=== PATIENT | female | born 1980 | race Caucasian/White ===

== ENCOUNTER 2016-09-09 13:20 | Emergency (ER) | payer OTHER ==
[~2016-09-09] VITALS: Ht 157.5 cm; Wt 94.1 kg
[~2016-09-09 13:20] MED LIST: ALBU8.5H2 INHALATION; BENZ100C8 PO; BUDE10.2 INHALATION; DIVA500T6 PO; ESCI20TA38 PO; MDR150V IM; PRE10 PO; PREG300C PO; TRAM50TA2 PO
[2016-09-09 13:25] VITALS: BP 110/71; PULSE 90; RESP 20; O2SAT 98
--- NOTE | 2016-09-09 13:39 | ED.REPORT ---
HPI-Dyspnea / Wheezing Date of Service September 09, 2016 ED Provider: Carlyle Caicedo DO The pt is a 36 y/o female w/ a hx of asthma, presenting to the ED complaining of a productive cough onset a month ago. The pt was diagnosed w/ reactive airways disease caused by a URI at the end of February and admitted to the hospital in March for this. Pneumonia was initially suspected although her blood and urine cultures were negative along with a positive viral respiratory PCR assay for rhinovirus. She is currently taking Divalproex, using Symbicort four times a day, and has not used her Albuterol in the last week because it worsened her cough. She is unsure if she is allergic to steroids. Nursing Notes Stated Complaint: SEVERE COUGH/FLUIDS IN LUNGS Chief Complaint: Respiratory Complaints Nursing Notes Reviewed: Yes Allergies: Coded Allergies: Penicillins (Verified Allergy, Unknown, hives, 04/08/16) amoxicillin (Verified Allergy, Unknown, hives, 04/08/16) cortisone (Verified Allergy, Unknown, reactive arthritis, 04/08/16) doxycycline (Verified Allergy, Unknown, 04/08/16) erythromycin base (Verified Allergy, Unknown, hives, 04/08/16) morphine (Verified Allergy, Unknown, burning skin, 04/08/16) prednisone (Verified Allergy, Unknown, reactive arthritis, 04/08/16) zolmitriptan (Verified Allergy, Unknown, throat closes, 04/08/16) Scheduled Albuterol HFA (Proair HFA) 8.5 Gm Hfa.aer.ad 2 PUFFS INHALATION Q4H Budesonide/Formoterol 80-4.5 mcg Inh (Symbicort 80-4.5 mcg Inh) 120 Puff Inhaler 2 PUFF INHALATION BID Divalproex (Divalproex) 500 Mg Tablet.dr 500 MG PO QPM Escitalopram Oxalate (Escitalopram Oxalate) 20 Mg Tablet 20 MG PO QPM Medroxyprogesterone Acetate (Depo-Provera) 150 Mg/Ml Depoinj 104 MG IM Every 3 months Prednisone (PredniSONE) 10 Mg Tablet 10 MG PO DAILY take 3 tabs for 2 days, then 2 tabs for 2 days, then 1 tab for 2 days. Prednisone (PredniSONE) 20 Mg Tablet 40 MG PO DAILY Pregabalin (Lyrica) 300 Mg Capsule 600 MG PO MORNING Pregabalin (Lyrica) 300 Mg Capsule 300 MG PO HS Tramadol (Tramadol) 50 Mg Tablet 50 MG PO BID Scheduled PRN Benzonatate (Benzonatate) 100 Mg Capsule 100 MG PO TID PRN PRN For Cough Miscellaneous Medications ([levaquin 500]) General Time Seen by MD: 13:34 Chief Complaint Cough (Productive) Hx Obtained From: Patient Arrived By: Walk-in Sudden in Onset?: Yes Onset Occurred: More than a week ago... (1 month) Symptom Duration: Since onset Recent Healthcare: Recent doctor visit, Recent hospitalization Similar Sx Previous: Yes Past Medical History Past Medical History Asthma GERD Anxiety Depression Endometriosis Past Surgical History l knee, leg fracture, ankle Reports: Appendectomy, Smoking History Former Smoker Social History Alcohol Use: "Social" Drug Use: Denies drug use Other Social History: Good social support, Occupation no work or school at this time Ambulatory Status Independent Review of Systems Productive cough Constitutional: Denies: Chills, Fever Complete sys rev & neg: except as marked. Physical Exam Initial Vital Signs Vital Signs (First) Date Time Temp Pulse Resp B/P Pulse Ox O2 Delivery O2 Flow Rate FiO2 09/09/16 13:25 37.0 90 20 110/71 98 Room Air Initial VS: Reviewed, Vital signs normal Head / Eyes: Atraumatic, Normocephalic, PERRL ENT: Mucous membranes moist, Conjunctiva normal, No scleral icterus Abdomen / GI: Soft, Non-tender, No guarding, No rebound, No distention Extremities: Vascular intact, Neuro intact, No swelling, No tenderness Skin: Warm, Dry, No cyanosis Neurologic: Alert, Oriented, Nonfocal Psychiatric: Mood/affect normal, Behavior normal, Normal thought content General/Constitutional: Awake, Alert, No acute distress Appearance / Presentation: Positive: Obese Neck: Atraumatic, Supple, Full range of motion Respiratory / Chest: Breath sounds = bilat, No respiratory distress, No chest tenderness Faint expiratory wheezes at lung bases Cardiovascular: Heart rate NL, Regular rhythm, Heart sounds NL Head / Eyes: Atraumatic, Normocephalic Interpretation & Diagnostics Lab Results Interpretation Result Diagram: 09/09/16 1430 09/09/16 1430 Test 09/09/16 14:30 White Blood Count 8.5th/mm3 (3.8-10.1) Red Blood Count 4.19mil/mm3 (3.90-5.20) Hemoglobin 13.3g/dL (12.0-15.6) Hematocrit 40.4% (35.0-46.0) Mean Corpuscular Volume 96.4fL (81-100) Mean Corpuscular Hemoglobin 31.7pg (27.0-35.0) Mean Corpuscular Hemoglobin Concent 32.9% (32.0-37.0) Red Cell Distribution Width 14.2% (12.3-15.4) Platelet Count 235bil/L (150-400) Neutrophils (%) (Auto) 60.5% (40-74) Lymphocytes (%) (Auto) 29.0% (14-46) Monocytes (%) (Auto) 8.2% (4-12) Eosinophils (%) (Auto) 1.8% (0-5) Basophils (%) (Auto) 0.4% (0-3) Sodium Level 141mEq/L (134-144) Potassium Level 4.2mEq/L (3.5-5.2) Chloride Level 105mEq/L (97-108) Carbon Dioxide Level 21mmol/L (18-29) Blood Urea Nitrogen 12mg/dL (6-20) Creatinine 0.83mg/dL (0.57-1.00) Estimat Glomerular Filtration Rate 111mL/min (>59) Glucose Level 99mg/dL (60-99) Calcium Level 9.3mg/dL (8.5-10.1) Total Bilirubin 0.3mg/dL (0.0-1.2) Aspartate Amino Transf (AST/SGOT) 18U/L (0-50) Alanine Aminotransferase (ALT/SGPT) 11U/L (0-32) Alkaline Phosphatase 68U/L (25-150) Troponin T < 0.010ug/L (0.0-0.011) Pro-B-Type Natriuretic Peptide 110.2pg/mL (0-130) Total Protein 6.9g/dL (6.4-8.4) Albumin 3.7g/dL (3.4-5.0) Procalcitonin 0.05ng/mL (0.00-0.08) Hold [place] Top Tube Received (Received) ECG Interpretation ECG Interpretation: Rate 83 Normal sinus rhythm Low voltage, precordial leads Time: 13:58 Interpreted by: ED physician X-Ray Chest Interpretation Chest Xray Interpretation: IMPRESSION: 1. No acute cardiopulmonary disease. Dictated by: Eddi Gtz M.D. on 09/09/2016 at 14:26 Approved by: Eddi Gtz M.D. on 09/09/2016 at 14:26 View: AP & lat Interpretation / Wet Read by: Interpret - Radiologist Re-Eval/Medical Decision Source of Hx: Old records Re-Evaluation/Progress : Time of Eval: 15:04 Re-Evaluation/Progress Note: Rechecked pt who is feeling better. The pt declines an IV. Discussed diagnosis, radiology results, and treatment plan. Pt understands and agrees with plan for treatment. Counseled Regarding: Diagnosis, Lab results, Need for follow-up, When/why to return to ED Discharge & Departure Impression: Primary Impression: Bronchitis Disposition: Home Discharge Condition All VS Reviewed: Yes Condition: Stable Additional Instructions: Take levofloxacin and prednisone as prescribed. Use albuterol every 4 hours as well as Symbicort. Follow up with your primary care doctor in the next few days and return to the ER as needed for worsening symptoms. Referrals: Cheli Medina (PCP) Scribe Attestation Portions of this note were transcribed by David Snell. I, Dr. Esmer Jerome personally performed the history, physical exam and medical decision- making; I reviewed and confirmed the accuracy of the information in the transcribed note. Signed by: Daisha Pierce, 09/09/16 and [id number]. copies to: Cheli Medina Timmert Gilman September 09, 2016 13:39 David Joel September 09, 2016 13:47 IRENE SNELL September 09, 2016 14:18
[2016-09-09] MEDS ORDERED: 0.9% Sodium Chloride 1,000 ML IV ONE (13:44)
[2016-09-09] MEDS ORDERED: MethylprednisoLONE Sodium Succinate 62.5 mg/mL 2 mL Inj IVPUSH ONE (13:45)
[2016-09-09] MEDS ORDERED: Albuterol 2.5 mg/3 mL Inhalation Solution NEB ONE (13:45)
[2016-09-09] MEDS ORDERED: Albuterol-Ipratropium 3 mL Inhalation Solution NEB ONE (13:45)
[2016-09-09 14:19] VITALS: PULSE 81; RESP 20; O2SAT 98
--- NOTE | 2016-09-09 14:33 | DRSVH ---
PROCEDURE: X-RAY CHEST, TWO VIEWS ([id number]) INDICATIONS: cough TECHNIQUE: 2 views of the chest were acquired. COMPARISON: [facility], CR, XR CHEST 2VW, 04/07/2016, 15:03. FINDINGS: Surgical changes and devices: None. Lungs and pleura: No pleural effusions or pneumothorax. Lungs are clear. Mediastinum: Mediastinal contours are normal. Heart size is normal. Bones and chest wall: No suspicious bony abnormalities. Soft tissues appear unremarkable. IMPRESSION: 1. No acute cardiopulmonary disease. Dictated by: Eddi Gtz M.D. on 09/09/2016 at 14:26 Approved by: Eddi Gtz M.D. on 09/09/2016 at 14:26
[2016-09-09 15:07] LABS: BASOPHILS % (AUTO) 0.4 % (0-3); EOSINOPHILS % (AUTO) 1.8 % (0-5); MONOCYTES % (AUTO) 8.2 % (4-12); Mean Corpuscular Hemoglobin 31.7 pg (27.0-35.0); Mean Corpuscular Volume 96.4 fL (81-100); NEUTROPHILS % (AUTO) 60.5 % (40-74); Platelet Count 235 bil/L (150-400)
[2016-09-09] MEDS ORDERED: predniSONE 20 mg Tablet PO ONE (15:15)
[2016-09-09] MEDS ORDERED: levoFLOXacin 500 mg Tablet PO ONE (15:15)
[2016-09-09] MEDS ORDERED: LEVAQUIN (15:18)
[2016-09-09] MEDS ORDERED: PRE20 PO (15:18)
[2016-09-09 15:32] LABS: TROPONIN T < 0.010 ug/L (0.0-0.011)
[2016-09-09 16:13] VITALS: BP 110/71; PULSE 106; RESP 20; O2SAT 97
== END 2016-09-09 16:14 | disposition home or self-care (01) ==
LOC: SED 13:20
DX: J40 Bronchitis, not specified as acute or chronic (principal); J45.909 Unspecified asthma, uncomplicated; K21.9 Gastro-esophageal reflux disease without esophagitis; F32.9 Major depressive disorder, single episode, unspecified; F41.9 Anxiety disorder, unspecified; Z87.09 Personal history of other diseases of the respiratory system; Z87.891 Personal history of nicotine dependence; Z88.0 Allergy status to penicillin; Z88.8 Allergy status to other drugs, medicaments and biological substances; Z88.1 Allergy status to other antibiotic agents; Z88.5 Allergy status to narcotic agent
CPT/HCPCS: 36415; 71020; 80053; 83880; 84145; 84484; 85025; 93005; 94640; 94664; 99285; J7613; J7620

== ENCOUNTER 2016-10-05 10:58 | Emergency (ER) | payer OTHER ==
[~2016-10-05] VITALS: Ht 157.5 cm; Wt 90.9 kg
[~2016-10-05 10:58] MED LIST changes: +LEVAQUIN; +PRE20 PO
[2016-10-05 11:01] VITALS: BP 112/62; PULSE 99; RESP 24; O2SAT 99
[2016-10-05] MEDS ORDERED: Albuterol-Ipratropium 3 mL Inhalation Solution NEB ONE (11:25)
--- NOTE | 2016-10-05 11:27 | ED.REPORT ---
HPI-Dyspnea / Wheezing Date of Service Oct 05, 2016 ED Provider: Huang Hunt PA-C Ubaldo is a 36-year-old female with a history reactive airway disease presenting with 2 weeks of, head pressure, productive cough, shortness of breath, sore throat, sneezing. Also admits right ear pain for last 4-5 days which "feels like an ice pick being stabbed later." Denies fever, chills, abdominal pain, vomiting, diarrhea, urinary symptoms. Recently discontinued smoking. Seen in this department approximately 3 weeks ago for similar symptoms. Treated with prednisone, Levaquin. Patient reports that she improved for about a week and her symptoms have slowly been worsening since then. Denies hemoptysis, recent trauma/surgery, extended travel, cancer, unilateral leg swelling, acute PE or DVT. Admits control Depo-Provera. Nursing Notes Stated Complaint: SOB/ASTHMA/EAR PAIN Chief Complaint: Respiratory Complaints Nursing Notes Reviewed: Yes Allergies: Coded Allergies: Penicillins (Verified Allergy, Unknown, hives, 10/05/16) amoxicillin (Verified Allergy, Unknown, hives, 10/05/16) cortisone (Verified Allergy, Unknown, reactive arthritis, 10/05/16) doxycycline (Verified Allergy, Unknown, 10/05/16) erythromycin base (Verified Allergy, Unknown, hives, 10/05/16) morphine (Verified Allergy, Unknown, burning skin, 10/05/16) zolmitriptan (Verified Allergy, Unknown, throat closes, 10/05/16) Scheduled Albuterol HFA (Proair HFA) 8.5 Gm Hfa.aer.ad 2 PUFFS INHALATION Q4H Budesonide/Formoterol 80-4.5 mcg Inh (Symbicort 80-4.5 mcg Inh) 120 Puff Inhaler 2 PUFF INHALATION BID Divalproex (Divalproex) 500 Mg Tablet.dr 500 MG PO QPM Escitalopram Oxalate (Escitalopram Oxalate) 20 Mg Tablet 20 MG PO QPM Medroxyprogesterone Acetate (Depo-Provera) 150 Mg/Ml Depoinj 104 MG IM Every 3 months Prednisone (PredniSONE) 10 Mg Tablet 10 MG PO DAILY take 3 tabs for 2 days, then 2 tabs for 2 days, then 1 tab for 2 days. Prednisone (PredniSONE) 20 Mg Tablet 40 MG PO DAILY Prednisone (PredniSONE) 20 Mg Tablet 40 MG PO DAILY Pregabalin (Lyrica) 300 Mg Capsule 600 MG PO MORNING Pregabalin (Lyrica) 300 Mg Capsule 300 MG PO HS Tramadol (Tramadol) 50 Mg Tablet 50 MG PO BID Scheduled PRN Albuterol Neb Soln (Albuterol Neb Soln) 2.5 Mg/3 Ml Vial.neb 2.5 MG INHALATION Q4H PRN PRN For Wheezing Benzonatate (Benzonatate) 100 Mg Capsule 100 MG PO TID PRN PRN For Cough Miscellaneous Medications ([levaquin 500]) General Time Seen by MD: 11:10 Chief Complaint Shortness of breath Past Medical History Past Medical History Asthma GERD Anxiety Depression Endometriosis Past Surgical History l knee, leg fracture, ankle Reports: Appendectomy, Smoking History Former Smoker Social History Alcohol Use: "Social" Drug Use: Denies drug use Other Social History: Good social support, Occupation no work or school at this time Ambulatory Status Independent Review of Systems General: Denies fever, chills, malaise. HEENT: Admits congestion, headache, sore throat, sneezing, right ear pain. Respiratory: Admits dyspnea, cough, shortness of breath, wheezing. Cardiovascular: Denies chest pain, palpitations. Gastrointestinal: Denies vomiting, diarrhea, abdominal pain. Genitourinary: Denies frequency, urgency, dysuria, hematuria. Otherwise as noted in HPI. Physical Exam General: Well appearing, well developed, well nourished, no acute distress. Head: Atraumatic, normocephalic. No mastoid tenderness. Eyes: No scleral icterus or injection. No discharge. PERRL. Vision grossly intact. Right ear: Pinna and tragus nontender with manipulation. External auditory canal patent, atraumatic and without discharge. Tympanic membrane dark with fluid, negative bulging, retraction or perforation. Hearing grossly intact. Left ear: Pinna and tragus nontender with manipulation. External auditory canal patent, atraumatic and without discharge. Tympanic membrane is opaque with apparent purulence, slightly injected. Hearing grossly intact. Nose: Symmetrical, nares patent without discharge. No frontal or maxillary sinus tenderness. Mouth/pharynx: normal dentition, mucus membranes moist. Tonsils 2+ and symmetrical, uvula midline. Pharynx noninjected, no cobblestoning or discharge. Voice clear. Neck: No tenderness or lymphadenopathy. Trachea midline. Respiratory: Appears short of breath walking into the examination room. Tachypneic rate and regular rhythm. Breath sounds present, clear to auscultation and equal bilaterally. Speaks in complete sentences. Cardiovascular: Regular rate and rhythm, without murmur, gallop or rub. No pedal edema. Skin: Warm and dry. Neurological: Grossly nonfocal. Psychological: Alert and oriented. Speech appropriate, linear and logical. Behavior appropriate. Initial Vital Signs Vital Signs (First) Date Time Temp Pulse Resp B/P Pulse Ox O2 Delivery O2 Flow Rate FiO2 10/05/16 11:01 36.4 99 24 112/62 99 Room Air Initial VS: Vital signs abnormal (tachypneic) Interpretation & Diagnostics Lab Results Interpretation Result Diagram: 10/05/16 1200 10/05/16 1200 Test 10/05/16 12:00 White Blood Count 8.1th/mm3 (3.8-10.1) Red Blood Count 4.17mil/mm3 (3.90-5.20) Hemoglobin 13.3g/dL (12.0-15.6) Hematocrit 40.4% (35.0-46.0) Mean Corpuscular Volume 96.9fL (81-100) Mean Corpuscular Hemoglobin 31.9pg (27.0-35.0) Mean Corpuscular Hemoglobin Concent 32.9% (32.0-37.0) Red Cell Distribution Width 14.4% (12.3-15.4) Platelet Count 213bil/L (150-400) Neutrophils (%) (Auto) 64.7% (40-74) Lymphocytes (%) (Auto) 27.0% (14-46) Monocytes (%) (Auto) 7.6% (4-12) Eosinophils (%) (Auto) 0.4% (0-5) Basophils (%) (Auto) 0.2% (0-3) Sodium Level 142mEq/L (134-144) Potassium Level 3.5mEq/L (3.5-5.2) Chloride Level 106mEq/L (97-108) Carbon Dioxide Level 22mmol/L (18-29) Blood Urea Nitrogen 9mg/dL (6-20) Creatinine 0.81mg/dL (0.57-1.00) Estimat Glomerular Filtration Rate 114mL/min (>59) Glucose Level 133mg/dL (60-99) Calcium Level 9.2mg/dL (8.5-10.1) Total Bilirubin 0.3mg/dL (0.0-1.2) Aspartate Amino Transf (AST/SGOT) 19U/L (0-50) Alanine Aminotransferase (ALT/SGPT) 12U/L (0-32) Alkaline Phosphatase 64U/L (25-150) Total Protein 6.2g/dL (6.4-8.4) Albumin 3.8g/dL (3.4-5.0) X-Ray Chest Interpretation Chest Xray Interpretation: PROCEDURE: X-RAY CHEST, TWO VIEWS ([id number]) INDICATIONS: 2 weeks cough IMPRESSION: Source of persistent cough is not found. Interpretation / Wet Read by: Interpret - Radiologist Re-Eval/Medical Decision Med Decision/Clinical Course 36-year-old female history reactive airway disease presents with persistent cough and wheezing for the last 2 weeks, as well as head pressure, ear pain, sneezing. Seen in this department approximately a month ago for similar. There is improvement after that but has been worsening again. Physical examination reveals a tachypneic patient whose lungs are clear to auscultation bilaterally. Fluid noted behind right tympanic brain. SPO2 99% on room air at rest. Vitals otherwise normal. Chest x-ray is unremarkable. CBC, CMP are unremarkable. Responds well to treatment with DuoNeb, continuous albuterol, prednisone. However her SPO2 reduces to 90% after ambulation without emergency department. Discussed case with Dr. Pimentel, who met with and examine the patient. He does not believe the ear requires antibiotic treatment. At this point I am reassured this is unlikely to be pneumonia, pulmonary embolus, pneumothorax, pleural effusion. This is most likely an exacerbation of her asthma likely secondary to allergies. Discussed the possibility of admission for observation with the patient, who prefers to be discharged to home. Provided prescription for home nebulizer, albuterol solution, prednisone, MDI spacer. Advised regarding primary care follow-up, provided emergency return precautions. Patient verbalized understanding of, and consent to, the plan. Re-Evaluation/Progress : Time of Eval: 12:10 Re-Evaluation/Progress Note: Patient reports some improvement after treatment with DuoNeb, however she remains tachypneic. Ordered albuterol, prednisone. Patient lists cortisone as an allergy, but reports taking prednisone previously without complication. Consents to treatment with prednisone. Discharge & Departure Impression: Primary Impression: Acute asthma exacerbation Asthma severity: unspecified severity Qualified Code: J45.901 - Unspecified asthma with (acute) exacerbation Disposition: Home Discharge Condition All VS Reviewed: Yes Condition: Stable Patient Instructions: Asthma (ED) Additional Instructions: Evaluation for shortness of breath and cough in the emergency department included history, physical examination, blood work and x-ray, all of which are reassuring that this is unlikely to be caused by an immediately dangerous conditions such as pneumonia. You did not wish to be admitted for observation and I believe it is reasonable that you be discharged to home. Improved after treatment with albuterol here in the department. I will write a prescription for nebulizer and albuterol to be used at home. I will also write prescription for prednisone to be taken once a day for the next 3 days, starting tomorrow. You received the first dose here in the emergency department. I will provide you with a spacer for your metered-dose inhalers request. You assured me that you have previously been trained in their use. I believe this may be exacerbated by seasonal allergies. I recommend loratidine 10 mg daily, which is available [id number]. Follow-up with your primary care provider as soon as possible to further assess the treatment of your reactive airway disease. Return to emergency department for any new or worsening symptoms including increasing shortness of breath, pain in your chest, loss of consciousness. Referrals: FELICITA COBBHI HAILY (PCP) EDSupervising Provider for APC: Carlyle Caicedo DO copies to: [facility] Huang Hunt PA-C Oct 05, 2016 11:26
[2016-10-05 11:43] VITALS: PULSE 106; RESP 16; O2SAT 98
--- NOTE | 2016-10-05 11:58 | DRSVH ---
PROCEDURE: X-RAY CHEST, TWO VIEWS ([id number]) INDICATIONS: 2 weeks cough TECHNIQUE: 2 views of the chest were acquired. COMPARISON: [facility], CR, XR CHEST 2VW, 09/09/2016, 14:12. [facility], CR, XR CHEST 2VW, 04/07/2016, 15:03. FINDINGS: Surgical changes and devices: None. Lungs and pleura: No pleural effusions or pneumothorax. Lungs are clear. Mediastinum: Mediastinal contours are normal. Heart size is normal. Bones and chest wall: No suspicious bony abnormalities. Soft tissues appear unremarkable. IMPRESSION: Source of persistent cough is not found. Dictated by: Nicholas Weeks M.D. on 10/05/2016 at 11:56 Approved by: Nicholas Weeks M.D. on 10/05/2016 at 11:56
[2016-10-05] MEDS ORDERED: predniSONE 20 mg Tablet PO ONE (12:10)
[2016-10-05] MEDS ORDERED: Albuterol 2.5 mg/3 mL Inhalation Solution NEB ONE (12:10)
[2016-10-05 12:13] LABS: BASOPHILS % (AUTO) 0.2 % (0-3); EOSINOPHILS % (AUTO) 0.4 % (0-5); MONOCYTES % (AUTO) 7.6 % (4-12); Mean Corpuscular Hemoglobin 31.9 pg (27.0-35.0); Mean Corpuscular Volume 96.9 fL (81-100); NEUTROPHILS % (AUTO) 64.7 % (40-74); Platelet Count 213 bil/L (150-400)
[2016-10-05 12:18] VITALS: PULSE 98; RESP 20; O2SAT 98
[2016-10-05 12:31] VITALS: PULSE 96; RESP 18; O2SAT 99
[2016-10-05] MEDS ORDERED: PRE20 PO (13:57)
[2016-10-05] MEDS ORDERED: ALBU2.5V4 INHALATION (13:58)
[2016-10-05 14:20] VITALS: PULSE 108; RESP 18; O2SAT 98
== END 2016-10-05 14:15 | disposition home or self-care (01) ==
LOC: SED 10:58
DX: J45.901 Unspecified asthma with (acute) exacerbation (principal); H92.01 Otalgia, right ear; K21.9 Gastro-esophageal reflux disease without esophagitis; F41.9 Anxiety disorder, unspecified; F32.9 Major depressive disorder, single episode, unspecified; Z87.891 Personal history of nicotine dependence; Z88.0 Allergy status to penicillin; Z88.1 Allergy status to other antibiotic agents; Z88.5 Allergy status to narcotic agent; Z88.8 Allergy status to other drugs, medicaments and biological substances
CPT/HCPCS: 36415; 71020; 80053; 85025; 94640; 94664; 99284; J7613; J7620

== ENCOUNTER 2017-01-21 09:45 | Emergency (ER) | payer OTHER ==
[~2017-01-21] VITALS: Ht 157.5 cm; Wt 86.4 kg
[~2017-01-21 09:45] MED LIST changes: +ALBU2.5V4 INHALATION
[2017-01-21 09:48] VITALS: BP 102/69; PULSE 102; RESP 18; O2SAT 99
--- NOTE | 2017-01-21 09:59 | ED.REPORT ---
HPI-Dyspnea / Wheezing Date of Service Jan 21, 2017 ED Provider: Diamante Koo MD Patient is a 36 year old female with a history of asthma who presents to the ED complaining of an asthma exacerbation onset 3 days ago. Associated symptoms include cough, wheezing and shortness of breath. The patient reports that she has tried using her Albuterol, Symbicort and nebulizer at home without relief of symptoms. She states that she was recently started on Propranolol but stopped taking it a week ago. Nursing Notes Stated Complaint: TROUBLE BREATHING Chief Complaint: Respiratory Complaints Nursing Notes Reviewed: Yes Allergies: Coded Allergies: Penicillins (Verified Allergy, Unknown, hives, 10/05/16) amoxicillin (Verified Allergy, Unknown, hives, 10/05/16) cortisone (Verified Allergy, Unknown, reactive arthritis, 10/05/16) doxycycline (Verified Allergy, Unknown, 10/05/16) erythromycin base (Verified Allergy, Unknown, hives, 10/05/16) morphine (Verified Allergy, Unknown, burning skin, 10/05/16) zolmitriptan (Verified Allergy, Unknown, throat closes, 10/05/16) Scheduled Albuterol HFA (Proair HFA) 8.5 Gm Hfa.aer.ad 2 PUFFS INHALATION Q4H Budesonide/Formoterol 80-4.5 mcg Inh (Symbicort 80-4.5 mcg Inh) 120 Puff Inhaler 2 PUFF INHALATION BID Divalproex (Divalproex) 500 Mg Tablet.dr 500 MG PO QPM Escitalopram Oxalate (Escitalopram Oxalate) 20 Mg Tablet 20 MG PO QPM Medroxyprogesterone Acetate (Depo-Provera) 150 Mg/Ml Depoinj 104 MG IM Every 3 months Prednisone (PredniSONE) 10 Mg Tablet 10 MG PO DAILY take 3 tabs for 2 days, then 2 tabs for 2 days, then 1 tab for 2 days. Prednisone (PredniSONE) 20 Mg Tablet 40 MG PO DAILY Prednisone (PredniSONE) 20 Mg Tablet 40 MG PO DAILY Prednisone (PredniSONE) 10 Mg Tablet 10 MG PO DAILY 40mg on 01/22, 30mg 01/23, 20mg on 01/24 and 01/25, 10mg on 01/26 and 01/27 then stop Pregabalin (Lyrica) 300 Mg Capsule 600 MG PO MORNING Pregabalin (Lyrica) 300 Mg Capsule 300 MG PO HS Tramadol (Tramadol) 50 Mg Tablet 50 MG PO BID Scheduled PRN Albuterol Neb Soln (Albuterol Neb Soln) 2.5 Mg/3 Ml Vial.neb 2.5 MG INHALATION Q4H PRN PRN For Wheezing Albuterol Neb Soln (Albuterol Neb Soln) 2.5 Mg/3 Ml Vial.neb 2.5 MG INHALATION Q4H PRN PRN For Wheezing Benzonatate (Benzonatate) 100 Mg Capsule 100 MG PO TID PRN PRN For Cough Miscellaneous Medications ([levaquin 500]) General Time Seen by MD: 09:57 Chief Complaint Shortness of breath Hx Obtained From: Patient Arrived By: Walk-in Sudden in Onset?: No Onset Occurred: 3 days ago Symptom Duration: Since onset Severity: Current: No pain currently Similar Sx Previous: Yes Past Medical History Past Medical History Anxiety Depression Endometriosis Reports: Asthma, GERD Past Surgical History left knee, leg fracture, ankle Reports: Appendectomy, Smoking History Former Smoker Social History Alcohol Use: "Social" Drug Use: Denies drug use Other Social History: Good social support, Occupation no work or school at this time Ambulatory Status Independent Review of Systems Respiratory: Reports: Non-productive cough, Shortness of breath, Wheezing Complete sys rev & neg: except as marked. Physical Exam Initial Vital Signs Vital Signs (First) Date Time Temp Pulse Resp B/P Pulse Ox O2 Delivery O2 Flow Rate FiO2 01/21/17 09:48 36.4 102 18 102/69 99 Room Air Initial VS: Reviewed General/Constitutional: Awake, Alert Neck: Atraumatic, Supple Respiratory / Chest: Atraumatic, No respiratory distress coarse can speech in partial sentences diffuse wheezes in all garay Cardiovascular: Heart rate NL, Regular rhythm, Heart sounds NL, No murmurs Skin: Atraumatic, Color NL, No rash, Warm, Dry Neurologic: Oriented X3, Speech NL Head / Eyes: Atraumatic, Normocephalic Re-Eval/Medical Decision Re-Evaluation/Progress #1: Time of Eval: 11:02 Re-Evaluation/Progress Note: Patient is feeling improved after a neb treatment. Re-Evaluation/Progress #2: Time of Eval: 11:15 Re-Evaluation/Progress Note: Discussed plan for steroid treatment and discharge. patient understands and agrees to plan. All questions were addressed. Counseled Regarding: Diagnosis, Lab results, Need for follow-up, When/why to return to ED Discharge & Departure Impression: Primary Impression: Acute asthma exacerbation Asthma severity: unspecified severity Qualified Code: J45.901 - Unspecified asthma with (acute) exacerbation Additional Impression: Adverse reaction to beta-jeremi Encounter type: initial encounter Qualified Code: T44.7X5A - Adverse effect of beta-adrenoreceptor antagonists, initial encounter Disposition: Home Discharge Condition All VS Reviewed: Yes Condition: Stable Additional Instructions: Your symptoms are likely related to the beta- jeremi (Propranolol) and you have appropriately stopped this medicine. Take the steroid, Prednisone as prescribed. You had a dose of solumedrol as a shot in the ER. The prednisone should be 40mg on 01/22, 30mg 01/23, 20mg on 01/24 and 01/25, 10mg on 01/26 and 01/27 then stop Continue to use your nebulizer and medications as needed for symptoms. Follow up with your primary care physician later this week. Return to the emergency department if you develop any new or concerning symptoms. [facility] Scribe Attestation Portions of this note were transcribed by Isha Mcnair. I, Dr. Koo personally performed the history, physical exam and medical decision-making; I reviewed and confirmed the accuracy of the information in the transcribed note. Signed by: Patrice Pulido, 01/21/17. copies to: [facility] Diamante Koo MD Jan 21, 2017 09:59 Kelsi Mcnair Jan 21, 2017 10:16
[2017-01-21] MEDS ORDERED: Albuterol 2.5 mg/3 mL Inhalation Solution NEB ONE (10:00)
[2017-01-21 10:15] VITALS: PULSE 102; RESP 20; O2SAT 94
[2017-01-21] MEDS ORDERED: ALBU2.5V4 INHALATION (11:12)
[2017-01-21] MEDS ORDERED: PRE10 PO (11:12)
[2017-01-21] MEDS ORDERED: MethylprednisoLONE Sodium Succinate 62.5 mg/mL 2 mL Inj IM ONE (11:15)
[2017-01-21 12:18] VITALS: BP 106/78; PULSE 97; O2SAT 96
== END 2017-01-21 12:17 | disposition home or self-care (01) ==
LOC: SED 09:45
DX: J45.901 Unspecified asthma with (acute) exacerbation (principal); T44.7X5A Adverse effect of beta-adrenoreceptor antagonists, initial encounter; Y93.89 Activity, other specified; Y92.89 Other specified places as the place of occurrence of the external cause; Y99.8 Other external cause status; K21.9 Gastro-esophageal reflux disease without esophagitis; F41.8 Other specified anxiety disorders; Z90.89 Acquired absence of other organs; Z98.890 Other specified postprocedural states; Z87.891 Personal history of nicotine dependence; Z88.0 Allergy status to penicillin; Z88.1 Allergy status to other antibiotic agents; Z88.5 Allergy status to narcotic agent; Z88.8 Allergy status to other drugs, medicaments and biological substances
CPT/HCPCS: 94664; 96372; 99284; J2930; J7613

== ENCOUNTER 2017-01-25 08:54 | Emergency (ER) | payer OTHER ==
[~2017-01-25] VITALS: Ht 157.5 cm; Wt 89.5 kg
[2017-01-25 08:57] VITALS: BP 121/77; PULSE 95; RESP 28; O2SAT 98
--- NOTE | 2017-01-25 09:18 | ED.REPORT ---
HPI-Dyspnea / Wheezing Date of Service Jan 25, 2017 ED Provider: Alberto Quinones MD Patient is a 36 year old female with a hx of asthma who presents to the ED complaining of worsening SOB onset 8 days ago. She has been on abx for 5 days for pneumonia and feels like she is getting worse. Associated symptoms include subjective fever, productive cough with green sputum, and low back pain. She denies hemoptysis, abdominal pain, ankle swelling, or any other symptoms. Pt has also been using nebulizers (4 times a day) and a prednisone taper without relief. Her PCP also put her on Levaquin. She denies using Tylenol or Ibuprofen. Nursing Notes Stated Complaint: SOB/POSS PNEUMONIA Chief Complaint: Respiratory Distress Nursing Notes Reviewed: Yes Allergies: Coded Allergies: Penicillins (Verified Allergy, Unknown, hives, 01/25/17) amoxicillin (Verified Allergy, Unknown, hives, 01/25/17) cortisone (Verified Allergy, Unknown, reactive arthritis, 01/25/17) doxycycline (Verified Allergy, Unknown, 01/25/17) erythromycin base (Verified Allergy, Unknown, hives, 01/25/17) morphine (Verified Allergy, Unknown, burning skin, 01/25/17) zolmitriptan (Verified Allergy, Unknown, throat closes, 01/25/17) Scheduled Albuterol HFA (Proair HFA) 8.5 Gm Hfa.aer.ad 2 PUFFS INHALATION Q4H Budesonide/Formoterol 80-4.5 mcg Inh (Symbicort 80-4.5 mcg Inh) 120 Puff Inhaler 2 PUFF INHALATION BID Divalproex (Divalproex) 500 Mg Tablet.dr 500 MG PO QPM Escitalopram Oxalate (Escitalopram Oxalate) 20 Mg Tablet 20 MG PO QPM Medroxyprogesterone Acetate (Depo-Provera) 150 Mg/Ml Depoinj 104 MG IM Every 3 months Prednisone (PredniSONE) 10 Mg Tablet 10 MG PO DAILY take 3 tabs for 2 days, then 2 tabs for 2 days, then 1 tab for 2 days. Prednisone (PredniSONE) 20 Mg Tablet 40 MG PO DAILY Prednisone (PredniSONE) 20 Mg Tablet 40 MG PO DAILY Prednisone (PredniSONE) 10 Mg Tablet 10 MG PO DAILY 40mg on 01/22, 30mg 01/23, 20mg on 01/24 and 01/25, 10mg on 01/26 and 01/27 then stop Pregabalin (Lyrica) 300 Mg Capsule 600 MG PO MORNING Pregabalin (Lyrica) 300 Mg Capsule 300 MG PO HS Tramadol (Tramadol) 50 Mg Tablet 50 MG PO BID Scheduled PRN Albuterol Neb Soln (Albuterol Neb Soln) 2.5 Mg/3 Ml Vial.neb 2.5 MG INHALATION Q4H PRN PRN For Wheezing Albuterol Neb Soln (Albuterol Neb Soln) 2.5 Mg/3 Ml Vial.neb 2.5 MG INHALATION Q4H PRN PRN For Wheezing Benzonatate (Benzonatate) 100 Mg Capsule 100 MG PO TID PRN PRN For Cough Benzonatate (Tessalon Perle) 100 Mg Capsule 100 MG PO TID PRN PRN For Cough Miscellaneous Medications ([levaquin 500]) General Time Seen by MD: 09:17 Chief Complaint Shortness of breath Hx Obtained From: Patient Arrived By: Walk-in Sudden in Onset?: No Onset Occurred: 1 week ago Symptom Duration: Since onset Recent Healthcare: Recent doctor visit Similar Sx Previous: Yes Past Medical History Past Medical History Notes: 3rd bout of pneumonia this year Past Medical History Anxiety cardiomyopathy Depression Endometriosis Fibromyalgia PTSD Reports: Asthma, GERD Past Surgical History left knee, leg fracture, ankle R knee x2 stomach surgery for GERD surg for Endometriosis Reports: Appendectomy, Smoking History Former Smoker Social History Alcohol Use: "Social" Drug Use: Denies drug use Other Social History: Good social support, Occupation no work or school at this time Ambulatory Status Independent Review of Systems Constitutional: Reports: Fever (subjective ) Respiratory: Reports: Prod cough, green, Shortness of breath, Denies: Hemoptysis Musculoskeletal: Reports: Back pain, Denies: Joint pain Complete sys rev & neg: except as marked. GI: Denies: Abdominal pain Physical Exam Initial Vital Signs Vital Signs (First) Date Time Temp Pulse Resp B/P Pulse Ox O2 Delivery O2 Flow Rate FiO2 01/25/17 08:57 36.7 95 28 121/77 98 Room Air Initial VS: Reviewed, Vital signs abnormal Head / Eyes: Atraumatic, Normocephalic Abdomen / GI: Soft, Non-tender Extremities: Vascular intact, Neuro intact Skin: Warm, Dry Neurologic: Alert, Oriented, Nonfocal Psychiatric: Mood/affect normal General/Constitutional: Awake, Alert Neck: Full range of motion Respiratory / Chest: Atraumatic, No rales, No rhonchi, No retractions, No stridor Diffuse expiratory wheezes Cardiovascular: Heart rate NL, Regular rhythm No peripheral edema Interpretation & Diagnostics Lab Results Interpretation Result Diagram: 01/25/17 0935 01/25/17 0935 Test 01/25/17 09:35 White Blood Count 9.9th/mm3 (3.8-10.1) Red Blood Count 4.45mil/mm3 (3.90-5.20) Hemoglobin 13.7g/dL (12.0-15.6) Hematocrit 40.0% (35.0-46.0) Mean Corpuscular Volume 89.9fL (81-100) Mean Corpuscular Hemoglobin 30.8pg (27.0-35.0) Mean Corpuscular Hemoglobin Concent 34.3% (32.0-37.0) Red Cell Distribution Width 13.7% (12.3-15.4) Platelet Count 343bil/L (150-400) Neutrophils (%) (Auto) 83.4% (40-74) Lymphocytes (%) (Auto) 12.5% (14-46) Monocytes (%) (Auto) 3.6% (4-12) Eosinophils (%) (Auto) 0% (0-5) Basophils (%) (Auto) 0% (0-3) Sodium Level 141mEq/L (134-144) Potassium Level 5.0mEq/L (3.5-5.2) Chloride Level 105mEq/L (97-108) Carbon Dioxide Level 22mmol/L (18-29) Blood Urea Nitrogen 13mg/dL (6-20) Creatinine 0.86mg/dL (0.57-1.00) Estimat Glomerular Filtration Rate 106mL/min (>59) Glucose Level 110mg/dL (60-99) Calcium Level 9.5mg/dL (8.5-10.1) Total Bilirubin 0.2mg/dL (0.0-1.2) Aspartate Amino Transf (AST/SGOT) 12U/L (0-50) Alanine Aminotransferase (ALT/SGPT) 11U/L (0-32) Alkaline Phosphatase 79U/L (25-150) Pro-B-Type Natriuretic Peptide 45.06pg/mL (0-130) Total Protein 6.9g/dL (6.4-8.4) Albumin 4.3g/dL (3.4-5.0) Procalcitonin 0.03ng/mL (0.00-0.08) Hold Z[place]aga Top Tube Received (Received) X-Ray Chest Interpretation Chest Xray Interpretation: IMPRESSION: Minimal bibasilar atelectasis. Otherwise normal chest radiograph. Findings and recommendations discussed with Dr. Quinones via telephone ([phone]) at 10:00 on 01/25/2017. Dictated by: Juan Perez M.D. on 01/25/2017 at 10:02 Approved by: Juan Perez M.D. on 01/25/2017 at 10:04 View: AP & lat Interpretation / Wet Read by: Interpret - Radiologist, Discussed w radiologist Re-Eval/Medical Decision Re-Evaluation/Progress #1: Time of Eval: 10:05 Re-Evaluation/Progress Note: Rechecked pt who reports she feels about the same. Discussed xray and lab results and plan for additonal treatments. Patient understands and agrees with plan. All questions addressed at this time. Re-Evaluation/Progress #2: Time of Eval: 11:30 Re-Evaluation/Progress Note: Rechecked pt. Discussed plan for discharge. Patient understands and agrees with plan. All questions addressed at this time. Counseled Regarding: Diagnosis, Lab results, Need for follow-up, When/why to return to ED Discharge & Departure Impression: Primary Impression: Acute asthma exacerbation Asthma severity: unspecified severity Qualified Code: J45.901 - Unspecified asthma with (acute) exacerbation Disposition: Home Discharge Condition All VS Reviewed: Yes Condition: Stable Patient Instructions: Reactive Airways Disease (ED) Additional Instructions: No evidence of pneumonia. Specifically, you have a normal chest x-ray, normal white blood cell count, normal vital signs, wheezing only on examination without rales, and a normal pro-calcitonin. For all these reasons I believe that continuing Levaquin is unnecessary and I advise you to discontinue it. Continue the prednisone as prescribed. Use albuterol every 2 hours as needed. Follow up in a few days for reevaluation, sooner if worse. Try Misael Yadav to see if this helps quite your cough. Referrals: [facility] ([facility]) [place] Attestation Portions of this note were transcribed by Isi Dick. I, Dr. Quinones personally performed the history, physical exam and medical decision-making; I reviewed and confirmed the accuracy of the information in the transcribed note. Signed by: Patrice Carr, 01/25/17 copies to: [facility] [place] Alberto Jerome MD Jan 25, 2017 09:18 ISI DICK Jan 25, 2017 09:27
[2017-01-25] MEDS ORDERED: Albuterol-Ipratropium 3 mL Inhalation Solution ONE (09:20)
[2017-01-25 09:53] LABS: BASOPHILS % (AUTO) 0 % (0-3); EOSINOPHILS % (AUTO) 0 % (0-5); MONOCYTES % (AUTO) 3.6 % (4-12); Mean Corpuscular Hemoglobin 30.8 pg (27.0-35.0); Mean Corpuscular Volume 89.9 fL (81-100); NEUTROPHILS % (AUTO) 83.4 % (40-74); Platelet Count 343 bil/L (150-400)
[2017-01-25] MEDS ORDERED: Albuterol 2.5 mg/3 mL Inhalation Solution NEB ONE (10:05)
--- NOTE | 2017-01-25 10:06 | DRSVH ---
PROCEDURE: X-RAY CHEST, TWO VIEWS ([id number]) INDICATIONS: wheezing TECHNIQUE: 2 views of the chest were acquired. COMPARISON: [facility], CR, XR CHEST 2VW, 10/05/2016, 11:34. FINDINGS: Surgical changes and devices: None. Lungs and pleura: No pleural effusions or pneumothorax. Minimal bibasilar atelectasis otherwise the lungs are clear. Mediastinum: Mediastinal contours are normal. Heart size is normal. Bones and chest wall: No suspicious bony abnormalities. Soft tissues appear unremarkable. IMPRESSION: Minimal bibasilar atelectasis. Otherwise normal chest radiograph. Findings and recommendations discussed with Dr. Quinones via telephone ([phone]) at 10:00 on . Dictated by: Juan Perez M.D. on 01/25/2017 at 10:02 Approved by: Juan Perez M.D. on 01/25/2017 at 10:04
[2017-01-25 10:34] VITALS: PULSE 82; RESP 22; O2SAT 94
[2017-01-25] MEDS ORDERED: BENZ-12 PO (11:38)
[2017-01-25 11:42] VITALS: BP 130/66; PULSE 90; RESP 15; O2SAT 96
== END 2017-01-25 11:44 | disposition home or self-care (01) ==
LOC: SED 08:54
DX: J45.901 Unspecified asthma with (acute) exacerbation (principal); R50.9 Fever, unspecified; M54.5 Low back pain; K21.9 Gastro-esophageal reflux disease without esophagitis; J45.909 Unspecified asthma, uncomplicated; M79.7 Fibromyalgia; F41.8 Other specified anxiety disorders; I42.9 Cardiomyopathy, unspecified; Z87.891 Personal history of nicotine dependence; Z88.0 Allergy status to penicillin; Z88.1 Allergy status to other antibiotic agents; Z88.5 Allergy status to narcotic agent; Z88.8 Allergy status to other drugs, medicaments and biological substances
CPT/HCPCS: 36415; 71020; 80053; 83880; 84145; 85025; 94644; 99284; J7613; J7620